=== PATIENT | female | born 1955 | race Caucasian/White ===

== ENCOUNTER 2022-08-23 07:36 | Observation (INO) ==
[2022-08-23] MEDS ORDERED: fentaNYL citrate PF 100 MCG/2 ML VIAL ONE (09:01)
[2022-08-23 09:05] LABS: Platelet Count 294 K/uL (130-400)
[2022-08-23 09:35] LABS: INR 0.9 (0.9-1.1); Prothrombin Time 10.3 Seconds (9.0-12.0)
[2022-08-23] MEDS ORDERED: ACETAMINOPHEN 500 MG TAB PO PRN (10:27)
--- NOTE | 2022-08-23 10:57 | XRay Report ---
XR chest 1V not portable CLINICAL HISTORY: s/p RUL lung nodule bx COMPARISON STUDY: PET/CT August 02, 2022. Images from CT-guided lung biopsy performed earlier today. FINDINGS: A moderate right apical pneumothorax is noted. Superior pleural separation is 3.2 cm. This has increased in size from immediate postprocedural CT. Subcutaneous gas within the right neck and ch est wall is noted. Scattered alveolar opacities within the lungs are present. No left-sided pneumotho rax. There is no pleural effusion. Right apical opacity represents the recently biopsied lesion. IMPRESSION: Moderate right apical pneumothorax, increased in size from immediate postprocedural CT. S ubcutaneous gas within the right neck and chest wall. ACT 112: Negative or not required by law. Electronically signed by: Roger Hatfield M.D. 08/23/2022 10:56 AM
--- NOTE | 2022-08-23 11:25 | History & Physical Report ---
Date of Service August 23, 2022 Assessment & Plan (1) Pneumothorax after biopsy: Plan: Presented for biopsy with IR of LEFT apical pulmonary nodule and developed PTX following requiring direct admission from [facility]. Has 8Fr chest tube to R anterior chest w/ pro, currently w/ grade 1 air leak w/ deep cough Admit PCU given hx tachycardia (verifying home meds as below, possibly on diltiazem outpatient, currently HRs in the 70s. Check COVID swab, baseline labs w/ CBC/BMP/Mag -- f/u results and electrolyte replacement if needed Imaging following initial biopsy this morning w/ * moderate right apical pneumothorax, increased in size from immediate postprocedural CT. Subcutaneous gas within the right neck and chest wall. s/p 8Fr chest tube to left anterior chest by Deangelo Pacheco under CT guidance Repeat CXR pending following chest tube placement Chest tube to 20cm H2o at present -- monitor for worsening leak Supplemental O2 to maintain sats Added Trelegy as she takes at home or hospital equivalent Discussed w/ IR provider and plans for repeat CXR in AM/clamping for 2hrs and repeating CXR and if stable will be able to consider discharge Also discussed w/ pulmonology for management of chest tube as well, official consult placed -- appreciate assistance/recs Monitor CXR in AM. Plan per IR was to monitor CXR in AM. If PTX resolved, plan to clamp x 2 hours, repeat CXR and if still w/o recurrence possible dc for tomorrow Defer further management of chest tube to pulmonology (2) Lung nodule: Plan: as above, bx pending (3) COPD (chronic obstructive pulmonary disease): Plan: added trelegy or hospital equivalent supplemental o2 to maintain sats smoking cessation encouraged, nicotine patch ordered while inpatient (4) Fibromyalgia: Plan: continue gabapentin 300mg QID, verified dosing with patient (5) Diabetes: Plan: will check A1c w/ AM labs (she thinks her last A1c ~6.1/6.2), on metformin 500mg daily Check BSG AC/HS for now, SSI if needed Monitor BSGs (6) Tachycardia: Plan: Hx elevated HRs but not sure what medication she takes. Denies taking it this morning or having family who would be able to obtain access. Her residential child care counselor prescribed such when she had HRs up to the 170s. Monitor on telemetry CM navigator contacting office to verify her medications and also dosing for her Cymbalta History of Present Illness Primary Care Provider: Rosina Cotto, DO 67yo female presented with need for lung biopsy for right apical opacity with Newton Pacheco and resulted in moderate right apical [employer], increased in size from immediate post-procedural CT. Subcutaneous gas within right neck and chest wall noted. IR provider currently placing a chest tube under CT guidance for her pneumothorax. Follows with pulmonology in [place], Dr Keating. Pulmonology contacted/consulted for assistance with management of chest tube. Case discussed with Deangelo Pacheco and CXR ordered for post-chest tube placement and to hook chest tube to 20cm H20 and monitor overnight/supplemental O2 to maintain sats and plans for repeat CXR in AM and if PTX resolved potentially clamp/monitor for 2 hours and then possible dc if repeat CXR stable w/ clamping of chest tube and subsequent removal. PMHx significant for DM/pre-DM on metformin 500mg daily, gabapentin 300mg QID and Cymbalta 20mg PO daily. She thinks she might actually be on double the dose of Cymbalta but is not sure. She also is on some medication for fast heart rate but she is unsure of what that medication is. She is not reporting any significant pain at present, but is laying flat/not moving. No shortness of breath reported. Lifelong smoker, about 10 cigarettes a day. Would like a nicotine patch. Does feel slightly congested. Was 91% in [facility], but placed on supplemental O2, 2L NC. Possible mucus plugging from her smoking. She notes she is on an inhaler for her COPD, Trelegy. She is on a medication for elevated HR but is unsure what name it is, possibly Diltiazem. Her residential child care counselor ordered such -- she is ok w/ us contacting his office to confirm her medications. CM navigator to assist. Discussed consultation w/ pulmonology for management of chest tube. 1+ air leak w/ deep cough and plan with possible dc tomorrow if all goes well. No fever/chills, abdominal pain, nausea, vomiting or other symptoms reported at this time. Questions/concerns addressed at this time. Allergies Allergy/AdvReac Type Severity Reaction Status Date / Time No Known Allergies Allergy Verified 08/23/22 09:39 Home Medications Medication Instructions Recorded Confirmed Type albuterol sulfate 90 mcg/actuation 1 inh inhalation QID PRN Shortness 08/23/22 08/23/22 History aerosol inhaler Of Breath alprazolam 0.5 mg tablet 0.5 mg PO TID PRN Anxiety 08/23/22 08/23/22 History ascorbic acid (vitamin C) 500 mg 500 mg PO DAILY 08/23/22 08/23/22 History tablet aspirin 81 mg tablet 81 mg PO DAILY 08/23/22 08/23/22 History cholecalciferol (vitamin D3) 25 25 mcg PO DAILY 08/23/22 08/23/22 History mcg (1,000 unit) tablet diltiazem HCl 08/23/22 History duloxetine 30 mg capsule,delayed 30 mg PO DAILY 08/23/22 08/23/22 History release duloxetine 60 mg capsule,delayed 60 mg PO DAILY 08/23/22 08/23/22 History release gabapentin 300 mg tablet 300 mg PO QID 08/23/22 08/23/22 History ivabradine 5 mg tablet (Corlanor) 5 mg PO BID 08/23/22 08/23/22 History metformin 500 mg tablet 500 mg PO DAILY 08/23/22 08/23/22 History roflumilast 500 mcg tablet mcg 08/23/22 History (Brianiresgarcía) Past Med/Surg History Medical History COPD (chronic obstructive pulmonary disease) Diabetes Fibromyalgia Osteoporosis Social History Smoking Status: Current every day smoker Tobacco Type: Cigarettes Cigarettes Per Day: 10; Second Hand Exposure: No; Do You Dip or Chew Tobacco: No; Tobacco Cessation Education Requested by Patient: No Hx Alcohol Use: Yes (occassional) Hx Substance Use: No Preferred Language: German Communication Ability: Effective Art Installer Required: No Beliefs That Will Affect Care: None Current Living Situation: Alone Other Information That Helps Us Care for You: No Feels Safe at Home: Yes Safety Concerns: Feels Safe At This Time Assistive Devices: Glasses Assistive Devices Comment: prn oxygen Physical Exam Physical Exam: General: chronically ill appearing female, looking older than her stated age, laying flat in bed, just being brought up from CT, NAD and requesting coffee HEENT: head normocephalic, atraumatic, mm dry (requesting a drink), trachea without significant deviation Chest: chest tube to right anterior chest, hooked to suction, grade 1 air leak w/ deep coughing, +crepitus to anterior right chest wall, no tachypnea, on 2L NC. +clubbing of nails, barrel chest rhonchi noted bilaterally CV: regular rate/rhythm, no significant m/r/g GI: +BS, soft/NT : no tim MSK/Neuro: no focal deficits, following commands Psych: AOx3, cooperative and pleasant Results & Data Results & Data Vital Signs (Past 12 Hours) Vital Signs Temp Pulse Resp BP Pulse Ox O2 Del Method 08/23/22 10:30 37.1 C 82 20 117/74 92 Room Air 08/23/22 07:49 37.0 C 105 H 20 123/80 92 Room Air 08/23/22 07:49 Room Air Laboratory Results 08/23/22 08/23/22 Range/Units 08:47 08:47 Plt Count 294 (130-400) K/uL PT 10.3 (9.0-12.0) Seconds INR 0.9 (0.9-1.1) Diagnostic Findings Chest X-Ray 08/23/22 10:27 XR chest 1V not portable CLINICAL HISTORY: s/p RUL lung nodule bx COMPARISON STUDY: PET/CT August 02, 2022. Images from CT-guided lung biopsy performed earlier today. FINDINGS: A moderate right apical pneumothorax is noted. Superior pleural separation is 3.2 cm. This has increased in size from immediate postprocedural CT. Subcutaneous gas within the right neck and chest wall is noted. Scattered alveolar opacities within the lungs are present. No left-sided pneumothorax. There is no pleural effusion. Right apical opacity represents the recently biopsied lesion. IMPRESSION: Moderate right apical pneumothorax, increased in size from immediate postprocedural CT. Subcutaneous gas within the right neck and chest wall. ACT 112: Negative or not required by law. Electronically signed by: Roger Hatfield M.D. 08/23/2022 10:56 AM Supervising Physician Co-Signing Physician Notes I personally saw and examined the patient. I verified all hobbs points and agree with Beatrice Ndiaye PA-C with the following exceptions and/or additions: 67 year old female s/p pneumothorax after IR biopsy of left apical pulmonary nodule s/p chest tube insertion by interventional radiology O/E HS RRR, subcutaneous emphysema crepitus to right chest wall, no wheezing or crackles, Abdo SNT A/P Postprocedural pneumothorax - appreciate pulmonology management of chest tube Inappropriate sinus tachycardia - encouraged patient to bring in her ivabradine from home as not on formulary here PG Care Time/CCT Total # of Minutes Spent Total Time Spent with Patient: Total time spent is greater than 50% in coordination of care (as documented) at patient's floor/unit and/or counseling patient: Coding Level of Care Code 03388 INT INP/OBS CARE 2/55MIN Diagnoses Pneumothorax after biopsy J95.811 Lung nodule R91.1 COPD (chronic obstructive pulmonary disease) J44.9 Fibromyalgia M79.7 Diabetes E11.9 Tachycardia R00.0
[2022-08-23] MEDS ORDERED: DEXTROSE 50% 50 ML SYRINGE IV PRN (12:16)
[2022-08-23] MEDS ORDERED: GLUCAGON FOR INJ 1 MG VIAL SQ PRN (12:16)
[2022-08-23] MEDS ORDERED: ALBUTEROL HFA 8 GM INHALER INH PRN (12:16)
[2022-08-23] MEDS ORDERED: GLUCOSE 40% GEL 15 GM TUBE PO PRN (12:16)
[2022-08-23] MEDS ORDERED: CARBOHYDRATES FOR HYPOGLYCEMIA PO PRN (12:16)
[2022-08-23] MEDS ORDERED: GLUCOSE 10 TAB/TUBE PO PRN (12:16)
[2022-08-23] MEDS ORDERED: ONDANSETRON INJ 2 MG/ML 2 ML VIAL IV PRN (12:16)
--- NOTE | 2022-08-23 12:21 | XRay Report ---
XR chest 1V not portable CLINICAL HISTORY: s/p chest tube placement COMPARISON STUDY: Chest radiograph performed earlier today. FINDINGS: A small right pneumothorax has decreased in size following right pleural catheter placement . Superior pleural separation now measures 1.1 cm. Subcutaneous gas within the right chest wall and n basia is again noted. The biopsy right upper lobe nodule is noted. There is no left pneumothorax. IMPRESSION: Decrease in size of a small right apical pneumothorax following right pleural catheter p lacement. Redemonstration of gas within the right neck and chest wall. ACT 112: Negative or not required by law. Electronically signed by: Roger Hatfield M.D. 08/23/2022 12:19 PM
[2022-08-23 12:40] LABS: Basophils # (auto) 0.09 K/uL (0-0.2); Basophils % (auto) 0.9 %; Eosinophils # (auto) 0.24 K/uL (0-0.50); Eosinophils % (auto) 2.3 %; Hematocrit (blood only) 44.7 % (37.0-47.0); Immature Granulocytes # (auto) 0.03 K/uL (0.01-0.20); Immature Granulocytes % (auto) 0.3 %; Lymphocytes # (auto) 3.17 K/uL (1.2-3.4); Lymphocytes % (auto) 30.4 %; Mean Corpuscular Hemoglobin 30.5 pg (25.0-34.0); Mean Corpuscular Hgb Conc 33.6 g/dL (32.0-36.0); Mean Platelet Volume 10.2 fL (9.4-12.4); Monocytes # (auto) 1.07 K/uL (0.11-0.59); Monocytes % (auto) 10.3 %; Neutrophils # (auto) 5.83 K/uL (1.40-6.50); Neutrophils % (auto) 55.8 %; Platelet Count 308 K/uL (130-400); RDW Coefficient of Variation 15.5 % (11.5-14.5); RDW Standard Deviation 51.9 fL (36.4-46.3); Red Blood Count 4.91 M/uL (4.20-5.40); White Blood Count 10.43 K/ul (4.8-10.8)
[2022-08-23] MEDS: ACETAMINOPHEN 325 MG TAB PO PRN ×2 (12:53→20:36)
[2022-08-23 12:54] LABS: BUN Creatinine Ratio 12.3 (10-20); Calcium 9.3 mg/dl (8.6-10.3); Creatinine Clr Calc Pharmacy 63.1 ml/min; Est GFR (African American) 100.2 ml/min; Est GFR (Non-African American) 86.4 ml/min; Potassium 4.6 mmol/L (3.5-5.1)
[2022-08-23] MEDS: GABAPENTIN 300 MG CAP PO SCH ×3 (12:54→20:16)
[2022-08-23] MEDS: NICOTINE 7 MG/24 HR TDSY TD SCH (12:54)
--- NOTE | 2022-08-23 13:05 | Pulmonary Consultation ---
Date of Consultation August 23, 2022 Assessment & Plan (1) Pneumothorax after biopsy: (2) COPD (chronic obstructive pulmonary disease): (3) Lung nodule: Plan Impression: 67-year-old female with history of tobacco abuse and reported COPD (PFTs not available now status post percutaneous biopsy of an upper lobe PET avid nodule with concomitant postprocedural pneumothorax status post pigtail catheter placement. Recommendations: 1. Postprocedural pneumothorax: Patient has a persistent/intermittent air leak. Continue chest tube to suction currently. We will repeat chest x-ray in the morning. Continue chest tube until air leak resolves at which point in time she will be placed on a clamping trial prior to removal of the tube. 2. Abnormal CT scan: Review of the prior CT scan demonstrates fairly diffuse groundglass opacities. Unclear etiology. Smoking-related interstitial lung disease may have this appearance. Recommended she follow-up with her outpatient tank builder and erector in [place]. 3. Pulmonary nodule: Status post biopsy today. Await pathology review. 4. COPD: Continue Trelegy and as needed albuterol. No indication for steroids or antibiotics at this point time. Next the opportunity to participate in the care of this patient. We will continue to follow with you. Feel free to contact us with questions or concerns History of Present Illness Attending Physician: Prakash Blanc MD History of Present Illness Asked by interventional radiology to assist in evaluation and management of this patient with postprocedural pneumothorax. History is obtained from discussion with interventional radiology as well as with the patient and reviewed electronic medical record. The patient is a 67-year-old female with a history of COPD and ongoing tobacco abuse (continues to smoke about 1/2 pack/day) she is followed by pulmonary in [place]. She was found to have a pulmonary nodule and was referred to interventional radiology here and underwent CT-guided percutaneous biopsy. The procedure was complicated by development of a moderate-sized pneumothorax with subcutaneous emphysema. An 8 Hungarian chest tube was placed by IR at the time of the biopsy and the patient has been admitted for additional management. Patient reports that she is doing well clinically. She has not minimal amount of pain on the right side. No shortness of breath cough or sputum production. She not had any hemoptysis. No syncope or presyncope. We do not have records from the patient's outpatient tank builder and erector to review. She does use Trelegy at home as well as as needed albuterol. Allergies Allergy/AdvReac Type Severity Reaction Status Date / Time No Known Allergies Allergy Verified 08/23/22 09:39 Home Medications Medication Instructions Recorded Confirmed Type duloxetine 20 mg capsule,delayed 20 mg PO QAM 08/23/22 08/23/22 History release (Cymbalta) gabapentin 300 mg tablet 300 mg PO QID 08/23/22 08/23/22 History metformin 500 mg tablet 500 mg PO DAILY 08/23/22 08/23/22 History Patient History Medical History COPD (chronic obstructive pulmonary disease) Diabetes Fibromyalgia Osteoporosis Social History Smoking Status: Current every day smoker Tobacco Type: Cigarettes Cigarettes Per Day: 10; Second Hand Exposure: No; Do You Dip or Chew Tobacco: No; Tobacco Cessation Education Requested by Patient: No Hx Alcohol Use: Yes (occassional) Hx Substance Use: No Preferred Language: Malay Communication Ability: Effective Event Designer Required: No Beliefs That Will Affect Care: None Current Living Situation: Alone Other Information That Helps Us Care for You: No Feels Safe at Home: Yes Safety Concerns: Feels Safe At This Time Assistive Devices: Glasses Assistive Devices Comment: prn oxygen Review of Systems Review of Systems: All systems reviewed & are unremarkable except as noted in Subjective Physical Exam Constitutional: WD/WN, vitals as above Neck: trachea midline, no thyromegaly Respiratory: normal respiratory effort, lungs clear to auscultation Cardiovascular: RRR, no murmur, no edema Chest (Breasts): Additional Comments: Subcutaneous emphysema in the neck and supraclavicular fossa. 8 Hungarian pigtail present in the midclavicular line in the third or fourth intercostal space There is a intermittent 2+ airleak with cough and deep breathing Gastrointestinal (Abdomen): normal bowel sounds, soft, nontender, no hepatosplenomegaly Musculoskeletal: Extremities: extremities normal to inspection Skin: no rashes, warm and dry Neurologic: Nonfocal exam Lymphatic: no cervical lymphadenopathy Results & Data Results & Data Vital Signs (Past 12 Hours) Vital Signs Temp Pulse Resp BP Pulse Ox O2 Del Method O2 Flow Rate 08/23/22 12:00 36.5 C 70 18 109/71 100 Nasal Cannula 3 08/23/22 10:45 36.7 C 85 20 110/69 92 Room Air 08/23/22 10:30 37.1 C 82 20 117/74 92 Room Air 08/23/22 07:49 37.0 C 105 H 20 123/80 92 Room Air 08/23/22 07:49 Room Air Critical Care Results & Data Vital Signs (Past 12 Hours) Vital Signs Temp Pulse Resp BP Pulse Ox O2 Del Method O2 Flow Rate 08/23/22 12:00 36.5 C 70 18 109/71 100 Nasal Cannula 3 08/23/22 10:45 36.7 C 85 20 110/69 92 Room Air 08/23/22 10:30 37.1 C 82 20 117/74 92 Room Air 08/23/22 07:49 37.0 C 105 H 20 123/80 92 Room Air 08/23/22 07:49 Room Air Lab & Micro Results (Past 24 Hours) RBC 4.91 M/uL (4.20-5.40) 08/23/22 WBC 10.43 K/ul (4.8-10.8) 08/23/22 Hgb 15.0 g/dl (12.0-16.0) 08/23/22 Hct 44.7 % (37.0-47.0) 08/23/22 MCV 91.0 fL (80.0-100.0) 08/23/22 MCH 30.5 pg (25.0-34.0) 08/23/22 MCHC 33.6 g/dL (32.0-36.0) 08/23/22 RDW Standard Deviation 51.9 fL (36.4-46.3) H 08/23/22 RDW Coefficient of Variation 15.5 % (11.5-14.5) H 08/23/22 Plt Count 308 K/uL (130-400) 08/23/22 MPV 10.2 fL (9.4-12.4) 08/23/22 Neutrophils (%) (Auto) 55.8 % 08/23/22 Lymphocytes (%) (Auto) 30.4 % 08/23/22 Monocytes # (Auto) 1.07 K/uL (0.11-0.59) H 08/23/22 Eosinophils # (Auto) 0.24 K/uL (0-0.50) 08/23/22 Immature Granulocyte % (Auto) 0.3 % 08/23/22 Neutrophils # (Auto) 5.83 K/uL (1.40-6.50) 08/23/22 Lymphocytes # (Auto) 3.17 K/uL (1.2-3.4) 08/23/22 Monocytes # (Auto) 1.07 K/uL (0.11-0.59) H 08/23/22 Eosinophils # (Auto) 0.24 K/uL (0-0.50) 08/23/22 Basophils # (Auto) 0.09 K/uL (0-0.2) 08/23/22 Immature Granulocyte # (Auto) 0.03 K/uL (0.01-0.20) 3 Na 138 mmol/L (136-145) 08/23/22 K 4.6 mmol/L (3.5-5.1) 08/23/22 Cl 103 mmol/L (98-107) 08/23/22 CO2 34 mmol/L (21-32) H 08/23/22 Anion Gap 1 (3-11) L 08/23/22 BUN 9 mg/dl (6-23) 08/23/22 Creatinine 0.73 mg/dl (0.6-1.2) 08/23/22 Estimated GFR ( Amer) 100.2 ml/min 08/23/22 Estimated GFR (Non-Af Amer) 86.4 ml/min 08/23/22 BUN/Creatinine Ratio 12.3 (10-20) 08/23/22 Glu 97 mg/dl (70-99(Fasting)) 08/23/22 Ca 9.3 mg/dl (8.6-10.3) 08/23/22 Mg 2.0 mg/dl (1.7-2.4) 08/23/22 12:17 Calcium Level 9.3 mg/dl (8.6-10.3) 08/23/22 12:17 Prothromb Time International Ratio 0.9 (0.9-1.1) 08/23/22 08:4 7 Diagnostic Findings (Past 24 Hours) Chest X-Ray 08/23/22 10:27 XR chest 1V not portable CLINICAL HISTORY: s/p RUL lung nodule bx COMPARISON STUDY: PET/CT August 02, 2022. Images from CT-guided lung biopsy performed earlier today. FINDINGS: A moderate right apical pneumothorax is noted. Superior pleural separation is 3.2 cm. This has increased in size from immediate postprocedural CT. Subcutaneous gas within the right neck and chest wall is noted. Scattered alveolar opacities within the lungs are present. No left-sided pneumothorax. There is no pleural effusion. Right apical opacity represents the recently biopsied lesion. IMPRESSION: Moderate right apical pneumothorax, increased in size from immediate postprocedural CT. Subcutaneous gas within the right neck and chest wall. ACT 112: Negative or not required by law. Electronically signed by: Roger Hatfield M.D. 08/23/2022 10:56 AM Chest X-Ray 08/23/22 10:27 XR chest 1V not portable CLINICAL HISTORY: s/p chest tube placement COMPARISON STUDY: Chest radiograph performed earlier today. FINDINGS: A small right pneumothorax has decreased in size following right pleural catheter placement. Superior pleural separation now measures 1.1 cm. S ubcutaneous gas within the right chest wall and neck is again noted. The biopsy right upper lobe nodule is noted. There is no left pneumothorax. IMPRESSION: Decrease in size of a small right apical pneumothorax following right pleural catheter placement. Redemonstration of gas within the right neck and chest wall. ACT 112: Negative or not required by law. Electronically signed by: Roger Hatfield M.D. 08/23/2022 12:19 PM RT Ventilator Mngmt (Last Documented) Ventilator Ordered Settings Respiratory Rate 18 08/23/22 12:00 Ventilator - PT Measurements Respiratory Rate 18 PG Care Time/CCT Total # of Minutes Spent Total Time Spent with Patient: Total time spent is greater than 50% in coordination of care (as documented) at patient's floor/unit and/or counseling patient: Coding Level of Care Code 03998 IN/OBS CONSULT LVL 3,45M Diagnoses Pneumothorax after biopsy J95.811 COPD (chronic obstructive pulmonary disease) J44.9 Lung nodule R91.1
[2022-08-23] MEDS: FLUTICASONE FUROATE 100MCG 14 PUFFS/INHALER INH SCH (13:15)
[2022-08-23] MEDS: UMECLIDINIUM/VILANTEROL 62.5/25MCG 7 PUFFS/INHALER INH SCH (13:15)
--- NOTE | 2022-08-23 13:41 | CT Scan Report ---
CT-guided right upper lobe lung nodule core biopsy INDICATION: 1.7 cm FDG avid right upper lobe lung nodule PROCEDURE: Procedure and risks were explained. Informed consent was obtained. A final timeout was com pleted. The patient was placed supine on the CT exam table. The right anterior thorax was prepped and draped in sterile fashion. 1% buffered lidocaine was utilized for skin anesthesia. Utilizing CT guidance, a 19-gauge coaxial needle was advanced down to the level of the right upper lo be lung nodule. A 20-gauge core biopsy needle was then advanced into the lung nodule, and (3) 1 cm co res were obtained and given to the pathologist for review. The coaxial needle was removed and Band- d applied. Post CT imaging demonstrated mild bleeding at the biopsy site with a tiny right pneumothor ax. A chest x-ray will be obtained post procedure and vital signs will be monitored. The patient ayleen rated the procedure well. IMPRESSION: CT-guided right upper lobe lung nodule core biopsy as above. Performed, dictated, and signed by Newton Pacheco PA-C; to be co-signed by Dr. Roger Hatfield. Electronically signed by: Roger Hatfield M.D. 08/23/2022 5:23 PM
--- NOTE | 2022-08-23 13:44 | CT Scan Report ---
CT-guided right pleural pigtail catheter placement INDICATION: Increasing pneumothorax status post right upper lobe lung nodule biopsy PROCEDURE: Procedure and risks were explained. Informed consent was obtained. A final timeout was com pleted. The patient was placed supine on the CT exam table. The right anterior thorax was prepped and draped in sterile fashion. 1% buffered lidocaine was utilized for skin anesthesia. Utilizing CT guidance, an 8 Romanian locking pigtail catheter was advanced into the right pleural space . The catheter was sutured to the skin with 2-0 silk and placed to 20 cm H2O wall suction. Post pleur al pigtail insertion CT demonstrated adequate catheter position with almost complete resolution of th e right pneumothorax. Arrangements will be made for the patient to be admitted and follow-up chest x- rays will be obtained to monitor the pneumothorax. The patient tolerated the procedure well. IMPRESSION: Right pleural pigtail catheter placement as detailed above. Performed, dictated, and signed by Newton Pacheco PA-C; to be co-signed by Dr. Roger Hatfield. Electronically signed by: Roger Hatfield M.D. 08/23/2022 5:23 PM
[2022-08-23] MEDS ORDERED: ALPRAZolam 0.5 MG TABLET PO PRN (14:12)
[2022-08-23] MEDS: INSULIN ASPART PER UNIT CHARGE SC SCH ×2 (16:27→21:15)
[2022-08-23] MEDS: guaiFENesin 600 MG TABCR PO SCH (20:16)
[2022-08-24] MEDS: ACETAMINOPHEN 325 MG TAB PO PRN (03:29)
[2022-08-24 07:35] LABS: Hematocrit (blood only) 41.8 % (37.0-47.0); Mean Corpuscular Hemoglobin 30.5 pg (25.0-34.0); Mean Corpuscular Hgb Conc 33.5 g/dL (32.0-36.0); Mean Corpuscular Volume 91.1 fL (80.0-100.0); Mean Platelet Volume 10.3 fL (9.4-12.4); Platelet Count 281 K/uL (130-400); RDW Coefficient of Variation 15.3 % (11.5-14.5); RDW Standard Deviation 51.1 fL (36.4-46.3); Red Blood Count 4.59 M/uL (4.20-5.40); White Blood Count 8.48 K/ul (4.8-10.8)
[2022-08-24] MEDS: INSULIN ASPART PER UNIT CHARGE SC SCH ×2 (07:49→11:33)
--- NOTE | 2022-08-24 08:10 | XRay Report ---
XR chest 1V portable HISTORY: Follow-up right-sided pneumothorax. COMPARISON: Chest 08/23/2022. FINDINGS: Right-sided subcutaneous emphysema again noted. The right-sided pneumothorax has decreased in size. This demonstrates a maximal pleural gap of 4 mm. A right-sided chest tube is unchanged in po sition. A right apical nodule is again noted. The left lung is clear. Emphysema. The heart is top nor mal in size. IMPRESSION: Decrease in size in the small right apical pneumothorax. The right-sided chest tube is unchanged in p osition. ACT 112: Negative or not required by law. Electronically signed by: Calvin Delgado M.D. 08/24/2022 8:09 AM
[2022-08-24] MEDS: guaiFENesin 600 MG TABCR PO SCH (08:20)
[2022-08-24] MEDS: FLUTICASONE FUROATE 100MCG 14 PUFFS/INHALER INH SCH (08:21)
[2022-08-24] MEDS: GABAPENTIN 300 MG CAP PO SCH ×2 (08:21→12:45)
[2022-08-24] MEDS: UMECLIDINIUM/VILANTEROL 62.5/25MCG 7 PUFFS/INHALER INH SCH (08:21)
[2022-08-24] MEDS: NICOTINE 7 MG/24 HR TDSY TD SCH (08:21)
[2022-08-24] MEDS ORDERED: DULoxetine HCL 20 MG CAP PO SCH (09:00)
[2022-08-24] MEDS ORDERED: DULoxetine HCL 60 MG CAP PO SCH (09:00)
--- NOTE | 2022-08-24 09:14 | Pulmonology Progress Note ---
Date of Service August 24, 2022 Assessment & Plan (1) Pneumothorax after biopsy: (2) COPD (chronic obstructive pulmonary disease): (3) Lung nodule: Plan Impression: 67-year-old female with history of tobacco abuse and reported COPD (PFTs not available now status post percutaneous biopsy of an upper lobe PET avid nodule with concomitant postprocedural pneumothorax status post pigtail catheter placement. She is doing well with the tube maintained on suction overnight Recommendations: 1. Postprocedural pneumothorax: Airleak resolved this morning. Tube was clamped. We will repeat chest x-ray in 2 hours. If the pneumothorax shows stability and no progression, the tube can be discontinued and the patient dismiss from the hospital. 2. Abnormal CT scan: Review of the prior CT scan demonstrates fairly diffuse groundglass opacities. Unclear etiology. Smoking-related interstitial lung disease may have this appearance. Recommended she follow-up with her outpatient clinical rehab liaison in [place]. 3. Pulmonary nodule: Status post biopsy today. Await pathology review. 4. COPD: Continue Trelegy and as needed albuterol. No indication for steroids or antibiotics at this point time. We will follow-up with chest x-ray later today. Feel free to contact us with questions or concerns. Admission and Anticipated Discharge Date Admission Date: August 23, 2022 Subjective Patient seen and examined. EMR reviewed. The patient is doing reasonably well this morning. She is having some slight pain at the chest tube insertion site. No shortness of breath or cough. Her air leak appears to have resolved. No fevers chills or night sweats overnight. Review of Systems Review of Systems: All systems reviewed & are unremarkable except as noted in Subjective Physical Exam Constitutional: WD/WN, vitals as above Neck: trachea midline, no thyromegaly Respiratory: normal respiratory effort, lungs clear to auscultation Cardiovascular: RRR, no murmur, no edema Chest (Breasts): Additional Comments: No air leak with forced expiratory maneuvers on Kami Gastrointestinal (Abdomen): normal bowel sounds, soft, nontender, no hepatosplenomegaly Musculoskeletal: Extremities: extremities normal to inspection Skin: no rashes, warm and dry Lymphatic: no cervical lymphadenopathy Results & Data Results & Data Vital Signs (Past 12 Hours) Vital Signs Temp Pulse Pulse Resp BP BP Pulse Ox 08/24/22 07:50 36.6 C 77 18 119/74 95 08/24/22 07:27 67 08/24/22 07:27 08/24/22 03:48 36.7 C 76 18 101/62 96 08/24/22 02:12 65 08/23/22 22:39 36.7 C 65 16 102/63 99 O2 Del Method O2 Flow Rate 08/24/22 07:50 Nasal Cannula 2 08/24/22 07:27 08/24/22 07:27 Nasal Cannula 2 08/24/22 03:48 Nasal Cannula 2.0 08/24/22 02:12 08/23/22 22:39 Nasal Cannula 2.0 Laboratory Results 08/24/22 06:45 Diagnostic Findings Chest x-ray from this morning independently reviewed. The tube is in good position. There does not appear to be any evidence of pneumothorax. Subc utaneous emphysema is decreased PG Care Time/CCT Total # of Minutes Spent Total Time Spent with Patient: Total time spent is greater than 50% in coordination of care (as documented) at patient's floor/unit and/or counseling patient: Coding Level of Care Code 22980 SUB INP/OBS CARE 2/35MIN Diagnoses Pneumothorax after biopsy J95.811 COPD (chronic obstructive pulmonary disease) J44.9 Lung nodule R91.1
[2022-08-24 09:15] LABS: Estimated Average Glucose 134 mg/dl; Hemoglobin A1C 6.3 % (4.5-5.6)
[2022-08-24 10:04] LABS: BUN Creatinine Ratio 13.3 (10-20); Creatinine Clr Calc Pharmacy 61.6 ml/min; Est GFR (African American) 96.9 ml/min; Est GFR (Non-African American) 83.6 ml/min; Magnesium 2.2 mg/dl (1.7-2.4)
--- NOTE | 2022-08-24 13:57 | XRay Report ---
XR chest 1V portable HISTORY: Evaluate right-sided pneumothorax. f/u from chest tube clamping COMPARISON: Chest 08/24/2022. FINDINGS: A right-sided chest tube is unchanged in position. No definite right-sided pneumothorax. Ri ght upper lobe nodules again noted. The heart is normal in size. Right-sided chest wall subcutaneous emphysema has improved. IMPRESSION: 1. The right-sided chest tube is unchanged in position. 2. No definite pneumothorax. 3. Right chest wall subcutaneous emphysema has improved. 4. Right upper lobe nodule is again noted. ACT 112: Negative or not required by law. Electronically signed by: Calvin Delgado M.D. 08/24/2022 1:55 PM
--- NOTE | 2022-08-24 14:09 | Procedure Note ---
Procedure Note Date of Service August 24, 2022 Note Procedure: Removal of 8 Macedonian pigtail catheter. Indication: Resolution of postprocedural pneumothorax Proceduralist, OLY Javier and Dr. Brownlee Anesthesia none Patient has had her tube clamped for 2 hours. Chest x-ray was performed which revealed no reaccumulation of the pneumothorax. The patient was placed in a semirecumbent position. The dressing was taken down. The stay sutures were cut and removed. The locking mechanism was released. Under full expiration, the pigtail catheter was pulled. It was observed to be intact. An occlusive dressing and Tegaderm was applied. The patient tolerated the procedure well. Patient can be dismissed from the hospital. She will need to follow-up with her product steward with results of the biopsy and to follow-up on her CT abnormalities. Pulmonary will sign off. Feel free to contact us with questions or concerns. Coding CPT Codes Pulmonary/Thoracic - Pulmonary and Thoracic: 53299 Remove lung catheter ([id number]) [facility] [place] Procedure Codes (Charges) Pulmonary/Thoracic Procedure 1: Pulmonary and Thoracic: 79613 Remove lung catheter
--- NOTE | 2022-09-02 18:13 | Discharge Summary ---
Date of Service August 24, 2022 Admission HPI Per Admitting Provider 67yo female presented with need for lung biopsy for right apical opacity with Newton Pacheco and resulted in moderate right apical [employer]ITION [employer]PER[employer], increased in size from immediate post-procedural CT. Subcutaneous gas within right neck and chest wall noted. IR provider currently placing a chest tube under CT guidance for her pneumothorax. Follows with pulmonology in [place], Dr Keating. Pulmonology contacted/consulted for assistance with management of chest tube. Case discussed with Deangelo Pacheco and CXR ordered for post-chest tube placement and to hook chest tube to 20cm H20 and monitor overnight/supplemental O2 to madina al satjayne and plans for repeat CXR in AM and if PTX resolved potentially clamp/monitor for 2 hours and then possible dc if repeat CXR stable w/ clamping of chest tube and subsequent removal. PMHx significant for DM/pre-DM on metformin 500mg daily, gabapentin 300mg QID and Cymbalta 20mg PO daily. She thinks she might actually be on double the dose of Cymbalta but is not sure. She also is on some medication for fast heart rate but she is unsure of what that medication is. She is not reporting any significant pain at present, but is laying flat/not moving. No shortness of breath reported. Lifelong smoker, about 10 cigarettes a day. Would like a nicotine patch. Does feel slightly congested. Was 91% in [facility], but placed on supplemental O2, 2L NC. Possible mucus plugging from her smoking. She notes she is on an inhaler for her COPD, Trelegy. She is on a medication for elevated HR but is unsure what name it is, possibly Diltiazem. Her dietetic tech ordered such -- she is ok w/ us contacting his office to confirm her medications. navigator to assist. Discussed consultation w/ pulmonology for management of chest tube. 1+ air leak w/ deep cough and plan with possible dc tomorrow if all goes well. No fever/chills, abdominal pain, nausea, vomiting or other symptoms reported at this time. Questions/concerns addressed at this time. Principal Diagnosis pneumothorax Discharge Exam General: chronically ill appearing female, looking older than her stated age, laying flat in bed, just being brought up from CT, NAD HEENT: head normocephalic, atraumatic, mm dry (requesting a drink), trachea without significant deviation Chest: CTA BL CV: regular rate/rhythm, no significant m/r/g GI: +BS, soft/NT : no tim MSK/Neuro: no focal deficits, following commands Psych: AOx3, cooperative and pleasant Discharge Data Allergies Allergy/AdvReac Type Severity Reaction Status Date / Time No Known Allergies Allergy Verified 08/23/22 09:39 Consultations 08/23/22 12:16 Consult Pulmonology Routine Procedures Performed Operation Date: 08/23/22 08:[address] Scan Biopsy - Mg Keating D.O. Ordered Studies 08/23/22 08:00 IR biopsy lung RT CT Routine 08/23/22 10:56 IR thoracentesis w/tube CT Stat Hospital Course (1) Pneumothorax after biopsy: Presented for biopsy with IR of LEFT apical pulmonary nodule and developed PTX following requiring direct admission from [facility]. Has 8Fr chest tube to R anterior chest w/ pro, currently w/ grade 1 air leak w/ deep cough Admit PCU given hx tachycardia (verifying home meds as below, possibly on diltiazem outpatient, currently HRs in the 70s. Check COVID swab, baseline labs w/ CBC/BMP/Mag -- f/u results and electrolyte replacement if needed Imaging following initial biopsy this morning w/ * moderate right apical pneumothorax, increased in size from immediate postprocedural CT. Subcutaneous gas within the right neck and chest wall. s/p 8Fr chest tube to left anterior chest by Deangelo Pacheco under CT guidance Repeat CXR pending following chest tube placement Chest tube to 20cm H2o at present -- monitor for worsening leak Supplemental O2 to maintain sats Added Trelegy as she takes at home or hospital equivalent Discussed w/ IR provider and plans for repeat CXR in AM/clamping for 2hrs and repeating CXR and if stable will be able to consider discharge Also discussed w/ pulmonology for management of chest tube as well, official consult placed -- appreciate assistance/recs Chest tube removed on 08/24 Prior to removal, chest tube clamped for 2 hours. Chest x-ray was performed which revealed no reaccumulation of the pneumothorax. Pulmonary noted: The patient was placed in a semirecumbent position. The dressing was taken down. The stay sutures were cut and removed. The locking mechanism was released. Under full expiration, the pigtail catheter was pulled. It was observed to be intact. An occlusive dressing and Tegaderm was applied. The patient tolerated the procedure well. Patient can be dismissed from the hospital. She will need to follow-up with her dietetic tech with results of the biopsy and to follow-up on her CT abnormalitie s. (2) Lung nodule: as above, bx pending (3) COPD (chronic obstructive pulmonary disease): added trelegy or hospital equivalent supplemental o2 to maintain sats smoking cessation encouraged, nicotine patch ordered while inpatient (4) Fibromyalgia: continue gabapentin 300mg QID, verified dosing with patient (5) Diabetes: resume home meds (6) Tachycardia: Hx elevated HRs but not sure what medication she takes. Denies taking it this morning or having family who would be able to obtain access. Her dietetic tech prescribed such when she had HRs up to the 170s. Monitor on telemetry CM navigator contacting office to verify her medications and also dosing for her Cymbalta Total Time Total Time Spent Total Time Spent (In Minutes): 32 Discharge Plan Discharge Items Patient Disposition: Home - Self-Care Reason For Visit: LOCALIZED SWELLING/MASS AND LUMP OF TRUNK Discharge Diagnosis: pneumothorax Activity: Resume your previous activity Non-emergency contact: Primary Care Provider Call non-emergency contact if: you have any medication questions Follow-up/Referrals: Rosina Cotto DO [Primary Care Provider] - (Patient preffered to make PCP follow up.) Diet: Heart Healthy Addtl Attending Provider Instructions: followup with PCP in 1-2 weeks continue 2 liters of oxygen when you walk. No oxygen at rest Continue your regular home meds: including Trelegy and as needed albuterol. Only new medicine would be nicotine patch. Please followup with your regular pulmonary doctor. Pending Studies at Discharge: No Stand-Alone Forms: My [facility], Smoking Cessation Medications and DC Order Prescriptions: New nicotine 7 mg/24 hr Patch 24 Hour 7 mg transdermal QAM Qty: 30 0RF Continued gabapentin 300 mg Tablet 300 mg PO QID metformin 500 mg Tablet 500 mg PO DAILY Corlanor 5 mg tablet 5 mg PO BID duloxetine 30 mg capsule,delayed release(DR/EC) 30 mg PO DAILY duloxetine 60 mg capsule,delayed release(DR/EC) 60 mg PO DAILY albuterol sulfate 90 mcg/actuation Hfa Aerosol Inhaler 1 inh INHALATION QID PRN (Reason: Shortness Of Breath) alprazolam 0.5 mg Tablet 0.5 mg PO TID PRN (Reason: Anxiety) ascorbic acid (vitamin C) 500 mg Tablet 500 mg PO DAILY aspirin 81 mg Tablet 81 mg PO DAILY cholecalciferol (vitamin D3) 25 mcg (1,000 unit) Tablet 25 mcg PO DAILY roflumilast [Daliresp] 500 mcg Tablet diltiazem HCl 120 MG capsule Discharge Orders: Discharge Order (Routine); Ordered 08/24/22 Ordered By: Claus La/Other Patient Handouts: Managing Type 2 Diabetes Admission Data Admit Date/Time: 08/23/22 11:26 Attending Provider: Claus Aquino Admit Provider: Prakash Blanc Primary Care Provider: Rosina Cotto Other Providers: Erich Brownlee Other Interventions: Discharge Summary Assessment (RN) Last Done: 08/24/22 17:34 Discharge Summary Assessment (RN) Last Done: 08/24/22 17:33 Coding Level of Care Code 03148 INP/OBS DISCH >30 MIN Diagnoses Pneumothorax after biopsy J95.811 Lung nodule R91.1 COPD (chronic obstructive pulmonary disease) J44.9 Fibromyalgia M79.7 Diabetes E11.9 Tachycardia R00.0
== END 2022-08-24 17:34 | disposition home or self-care (01) ==
LOC: ASU 07:36 → SUATTDRO 11:26 → INTOOBSV 11:26 → 2S 11:50